=== PATIENT | female | born 1980 | race Caucasian/White ===

== ENCOUNTER 2017-10-15 20:03 | Emergency (ER) | payer OTHER ==
[2017-10-15 20:11] VITALS: BP 134/70
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
== END 2017-10-15 21:15 | disposition home or self-care (01) ==
LOC: ED 20:03
DX: S39.012A Strain of muscle, fascia and tendon of lower back, initial encounter (principal); V89.2XXA Person injured in unspecified motor-vehicle accident, traffic, initial encounter; R03.0 Elevated blood-pressure reading, without diagnosis of hypertension
CPT/HCPCS: 99283

== ENCOUNTER 2018-11-18 10:46 | Emergency (ER) | payer OTHER ==
--- NOTE | 2018-11-18 11:36 | CT Report ---
Reason: fall, LOC, no blood thinners Procedure Date: 11/18/2018 Accession Number: [id number] / [id number] Procedure: CT - HEAD WO CPT Code: FULL RESULT: EXAM: CT HEAD AND MAXILLOFACIAL EXAM DATE: 11/18/2018 11:13 AM. CLINICAL HISTORY: Fall, loss of consciousness, no blood thinners. COMPARISON: FACIAL BONES W/O 11/18/2018 11:08 AM. TECHNIQUE: Noncontrast axial sections through the head and face, with multiplanar reconstructions through the face. In accordance with CT protocol optimization, one or more of the following dose reduction techniques were utilized for this exam: automated exposure control, adjustment of mA and/or KV based on patient size, or use of iterative reconstructive technique. FINDINGS HEAD CT: Parenchyma: No intraparenchymal hemorrhage. No evidence of mass, midline shift. Wallace-white differentiation is distinct. Extraaxial Spaces: Normal for age. No subdural or epidural collections identified. Ventricles: Normal in size and position. Bones: No evidence of fracture or calvarial defect. Other: Mastoid air cells are clear. Mild amount of soft tissue thickening in the left extracranial frontotemporal region. FINDINGS MAXILLOFACIAL CT: Bones: No fracture or bone lesion. Temporomandibular Joints: The temporomandibular joints are symmetric and normally located. Sinuses: Large mucoid retention cyst in the right maxillary sinus with mucosal thickening/small retention cyst in the left maxillary sinus. Mild mucoperiosteal thickening in the nasal cavity. Other: Visualized orbits are atraumatic. IMPRESSION: Head CT: Negative for an acute intracranial abnormality. Maxillofacial CT: Negative. RADIA The call report notification system was initiated by Dr. Damaso Patten at 11:34 AM on 11/18/2018. ADDENDUM: 11/18/18 11:44 am Findings were discussed with including the chronic-appearing sinus changes, time approximately 11:40 AM on the day of dictation. The above call report findings were discussed with ED Physician by Dr. Damaso Patten at 11:45 AM on 11/18/2018.
--- NOTE | 2018-11-18 11:36 | CT Report ---
Reason: fell and LOC with hematoma to left quaker Procedure Date: 11/18/2018 Accession Number: [id number] / [id number] Procedure: CT - MAXILLOFACIAL WO CPT Code: FULL RESULT: EXAM: CT HEAD AND MAXILLOFACIAL EXAM DATE: 11/18/2018 11:13 AM. CLINICAL HISTORY: Fall, loss of consciousness, no blood thinners. COMPARISON: FACIAL BONES W/O 11/18/2018 11:08 AM. TECHNIQUE: Noncontrast axial sections through the head and face, with multiplanar reconstructions through the face. In accordance with CT protocol optimization, one or more of the following dose reduction techniques were utilized for this exam: automated exposure control, adjustment of mA and/or KV based on patient size, or use of iterative reconstructive technique. FINDINGS HEAD CT: Parenchyma: No intraparenchymal hemorrhage. No evidence of mass, midline shift. Wallace-white differentiation is distinct. Extraaxial Spaces: Normal for age. No subdural or epidural collections identified. Ventricles: Normal in size and position. Bones: No evidence of fracture or calvarial defect. Other: Mastoid air cells are clear. Mild amount of soft tissue thickening in the left extracranial frontotemporal region. FINDINGS MAXILLOFACIAL CT: Bones: No fracture or bone lesion. Temporomandibular Joints: The temporomandibular joints are symmetric and normally located. Sinuses: Large mucoid retention cyst in the right maxillary sinus with mucosal thickening/small retention cyst in the left maxillary sinus. Mild mucoperiosteal thickening in the nasal cavity. Other: Visualized orbits are atraumatic. IMPRESSION: Head CT: Negative for an acute intracranial abnormality. Maxillofacial CT: Negative. RADIA The call report notification system was initiated by Dr. Damaso Patten at 11:34 AM on 11/18/2018. ADDENDUM: 11/18/18 11:44 am Findings were discussed with including the chronic-appearing sinus changes, time approximately 11:40 AM on the day of dictation. The above call report findings were discussed with ED Physician by Dr. Damaso Patten at 11:45 AM on 11/18/2018.
[2018-11-18 12:27] VITALS: BP 127/72
[2018-11-18] MEDS ORDERED: HYDROcod/ACETAM 5/325 MG TABLET PO STA (12:32)
--- NOTE | 2018-11-18 12:36 | ED Physician Documentation ---
PD HPI HEAD INJURY - Stated complaint Stated Complaint: LT SIDE FACE INJURY - Chief complaint Chief Complaint: Trauma Hd/Nk - History obtained from History obtained from: Patient, Family - History of Present Illness Mechanism of head injury: Fell Where head injury occurred: Home Timing - onset: How many hours ago (1) Pain level max: 8 Pain level now: 8 Location of injury: Left Quality of pain: Pain, Aching, Dull Associated symptoms: LOC (brief). No: AMS, Amnesia, Nausea / vomiting, Neck pain, Paresthesias, Seizures, Ear drainage, Nasal drainage Symptoms improve with: Rest Symptoms worsen with: Palpation, Movement Recently seen: Not recently seen - Additional information Additional information: Patient tripped and fell today over her dogs, striking the left side of her head and face on a door. She states that she saw stars and then passed out. Review of Systems Ten Systems: 10 systems reviewed and negative Constitutional: denies: Fever, Chills Eyes: denies: Decreased vision Ears: denies: Ear pain Nose: denies: Rhinorrhea / runny nose, Congestion Throat: denies: Sore throat Cardiac: denies: Chest pain / pressure Respiratory: denies: Cough GI: denies: Abdominal Pain, Nausea, Vomiting, Diarrhea Skin: denies: Rash Musculoskeletal: denies: Neck pain, Back pain Neurologic: denies: Focal weakness, Numbness PD PAST MEDICAL HISTORY - Past Medical History Past Medical History: Yes Cardiovascular: None Endocrine/Autoimmune: None Other Past Medical History: mast cell disorder - Past Surgical History Past Surgical History: Yes General: Cholecystectomy - Present Medications Home Medications: Ambulatory Orders Medication Instructions Recorded Confirmed Acyclovir 400 mg PO 5XD #25 tablet 01/12/16 Hydrocodone/Acetaminophen [[place] 1 each PO Q6H PRN #15 tablet 01/12/16 5-325 Tablet] Sulfamethoxazole/Trimethoprim 1 each PO BID #14 tablet 01/12/16 [Bactrim Ds Tablet] Hydrocodone/Acetaminophen 1 - 2 each PO Q6H PRN #10 tablet 11/18/18 [Hydrocodon-Acetaminophen 5-325] Promethazine [Phenergan] 25 mg PO Q6H PRN #10 tab 11/18/18 - Allergies Allergies/Adverse Reactions: Allergies Allergy/AdvReac Type Severity Reaction Status Date / Time caffeine Allergy Unknown Verified 11/18/18 10:52 meperidine HCl * Allergy Unknown Verified 11/18/18 10:52 [From Demerol] Penicillins Allergy Hives Verified 11/18/18 10:52 metronidazole [From Flagyl] AdvReac Unknown Verified 11/18/18 10:52 ondansetron HCl * AdvReac Unknown Verified 11/18/18 10:52 [From Zofran (as hydrochloride)] - Social History Does the pt smoke?: No Smoking Status: Never smoker Does the pt drink ETOH?: Yes Does the pt have substance abuse?: No - Immunizations Immunizations are current?: Yes - POLST Patient has POLST: No PD ED PE NORMAL - Vitals Vital signs reviewed: Yes - General General: Alert and oriented X 3, No acute distress, Well developed/nourished - HEENT HEENT: PERRL, EOMI, Ears normal, Moist mucous membranes, Pharynx benign, Other (Tender to palpation over the right side of the mandible. There is a clicking to the jaw. She also has a left-sided temporal hematoma. 3 x 4 cm) - Neck Neck: Supple, no meningeal sign, No bony TTP - Respiratory Respiratory: No respiratory distress - Back Back: No spinal TTP - Derm Derm: Warm and dry - Extremities Extremities: No deformity - Neuro Neuro: Alert and oriented X 3 - Psych Psych: Normal mood, Normal affect Results - Vitals Vitals: Vital Signs - 24 hr 11/18/18 11/18/18 10:49 12:26 Temperature 36.6 C Heart Rate 71 74 Respiratory 14 14 Rate Blood Pressure 129/84 H 127/72 O2 Saturation 100 97 Oxygen O2 Source Room air - Rads (name of study) head CT Radiology: Prelim report reviewed, EMP read contemporaneously, See rad report (No acute abnormality) maxillofacial CT Radiology: Prelim report reviewed, EMP read contemporaneously, See rad report (No acute abnormality) PD MEDICAL DECISION MAKING - ED course Complexity details: reviewed results, re-evaluated patient, considered differential, d/w patient, d/w family ED course: 38-year-old female with a closed head injury. Will prescribe pain medication for home and follow-up with her doctor. Head injury instructions given at bedside. Patient counseled regarding signs and symptoms for which I believe and urgent re-evaluation would be necessary. Patient with good understanding of and agreement to plan and is comfortable going home at this time This document was made in part using voice recognition software. While efforts are made to proofread this document, sound alike and grammatical errors may occur. Departure - Departure Disposition: 01 Home, Self Care Clinical Impression: Head injury Qualifiers: Encounter type: initial encounter Qualified Code(s): S09.90XA - Unspecified injury of head, initial encounter Concussion Qualifiers: Encounter type: initial encounter Loss of consciousness presence/duration: with LOC of 30 min or less Qualified Code(s): S06.0X1A - Concussion with loss of consciousness of 30 minutes or less, initial encounter Facial hematoma Qualifiers: Encounter type: initial encounter Qualified Code(s): S00.83XA - Contusion of other part of head, initial encounter Condition: Good Health Concerns: head injury Plan of Treatment: supportive care Care Goals: resolve head injury Assessment: head injury Instructions: ED Head Injury Closed Follow-Up: your,doctor in 1 week [Other] Prescriptions: Hydrocodone/Acetaminophen [Hydrocodon-Acetaminophen 5-325] 1 - 2 each PO Q6H PRN #10 tablet PRN Reason: pain Promethazine [Phenergan] 25 mg PO Q6H PRN #10 tab PRN Reason: Nausea / Vomiting Comments: Return if you worsen. Your CT scans are normal today. Do not drink alcohol or drive while on narcotic pain medicine or phenergan. Note that many narcotic pain relievers also contain tylenol/acetaminophen. Please ensure that your total dose of acetaminophen from all sources does not exceed 3 grams (3000mg) per day. You may constipated on this medication, take a stool softener such as "Colace" twice a day while you are on it. Also recommend a fmyo-uoc-kcifosa laxative such as senna or MiraLAX any day that you do not have a bowel movement. If you received narcotic pain medication in the emergency department, do not drive or operate machinery for the next 24 hours.
== END 2018-11-18 12:45 | disposition home or self-care (01) ==
LOC: ED 10:46
DX: S06.0X1A Concussion with loss of consciousness of 30 minutes or less, initial encounter (principal); W01.198A Fall on same level from slipping, tripping and stumbling with subsequent striking against other object, initial encounter; Y92.009 Unspecified place in unspecified non-institutional (private) residence as the place of occurrence of the external cause
CPT/HCPCS: 70450; 70486; 99283; 99284; A9270

== ENCOUNTER 2019-02-02 22:53 | Outpatient (CLI) | payer OTHER | END 2019-02-02 22:54 | disposition short-term general hospital (02) | LOC: EMS 22:53 | PROVIDERS: ATTEND Surgery | DX: R29.810 Facial weakness (principal); R47.81 Slurred speech; R53.1 Weakness | CPT/HCPCS: A0425; A0427 ==

== ENCOUNTER 2020-11-08 09:11 | Outpatient (CLI) | payer OTHER | END 2020-11-08 09:12 | disposition critical access hospital (66) | LOC: EMS 09:11 | DX: S99.911A Unspecified injury of right ankle, initial encounter (principal); W01.0XXA Fall on same level from slipping, tripping and stumbling without subsequent striking against object, initial encounter; Y92.007 Garden or yard of unspecified non-institutional (private) residence as the place of occurrence of the external cause | CPT/HCPCS: A0425; A0427 ==

== ENCOUNTER 2020-11-08 09:42 | Emergency (ER) | payer OTHER ==
[2020-11-08] MEDS ORDERED: diphenhydrAMINE INJ 50 MG/ML VIAL IVP STA (09:52)
[2020-11-08] MEDS ORDERED: fentaNYL 100 MCG/2 ML VIAL IVP STA ×2 (09:52→10:22)
--- NOTE | 2020-11-08 09:52 | ED Physician Documentation ---
PD HPI LOWER EXT INJURY - Stated complaint Stated Complaint: RT ANKLE INJ - History obtained from History obtained from: Patient - History of Present Illness PD HPI LOW EXT INJURY LOCATION: Right, Ankle Type of injury: Fall (slipped on wet grass with twist and fall. Pain abrupt right ankle and it felt "dangling" when tried to move it after the injury. Denies other injuries.), Twist Timing - onset: Today (shortly [employer].) Timing - details: Abrupt onset, Still present Worsened by: Moving Associated symptoms: Swelling. No: Weakness, Numbness Similar symptoms before: Has not had sx before Recently seen: Not recently seen Review of Systems Constitutional: denies: Fever, Chills Nose: denies: Rhinorrhea / runny nose, Congestion Throat: denies: Sore throat Cardiac: denies: Chest pain / pressure Respiratory: denies: Cough GI: denies: Abdominal Pain Skin: denies: Abrasion (s), Laceration (s) Musculoskeletal: reports: Joint pain (just the right ankle today) Neurologic: denies: Focal weakness, Numbness, Altered mental status, Head injury PD PAST MEDICAL HISTORY - Past Medical History Cardiovascular: None Endocrine/Autoimmune: None - Past Surgical History Past Surgical History: Yes General: Cholecystectomy - Present Medications Home Medications: Ambulatory Orders Medication Instructions Recorded Confirmed HYDROcod/ACETAM 5/325 [[place] 5/325] 1 ea PO Q6H PRN #10 tablet 11/08/20 oxyCODONE [Roxicodone] 5 mg PO QPM PRN #10 tablet 11/08/20 - Allergies Allergies/Adverse Reactions: Allergies Allergy/AdvReac Type Severity Reaction Status Date / Time caffeine Allergy Unknown Verified 11/08/20 09:54 meperidine HCl * Allergy Unknown Verified 11/08/20 09:54 [From Demerol] Penicillins Allergy Hives Verified 11/08/20 09:54 metronidazole [From Flagyl] AdvReac Unknown Verified 11/08/20 09:54 ondansetron HCl * AdvReac Unknown Verified 11/08/20 09:54 [From Zofran (as hydrochloride)] - Social History Does the pt smoke?: No Smoking Status: Never smoker Does the pt drink ETOH?: Yes Does the pt have substance abuse?: No - Immunizations Immunizations are current?: Yes - POLST Patient has POLST: No PD ED PE NORMAL - Vitals Vital signs reviewed: Yes - General General: Alert and oriented X 3, Well developed/nourished, Other (appears in pain due to ankle injury.) - HEENT HEENT: Atraumatic - Neck Neck: Supple, no meningeal sign, No bony TTP - Cardiac Cardiac: RRR, No murmur - Respiratory Respiratory: Clear bilaterally, Other (no chestwall tenderness.) - Abdomen Abdomen: Soft, Non tender - Back Back: No spinal TTP - Derm Derm: Normal color, Warm and dry - Extremities Extremities: Other (right ankle with tenderness medial and lateral. Some effusion. Normal sesnation, color, cap refill in toes. Able to wiggle toes okay. Some tender mid to proximal fibula as well. ) - Neuro Neuro: Alert and oriented X 3, No motor deficit, No sensory deficit, Normal speech Results - Vitals Vitals: Vital Signs - 24 hr 11/08/20 11/08/20 11/08/20 09:43 11:52 12:53 Temperature 36.4 C L 37.1 C 36.7 C Heart Rate 77 72 67 Respiratory 16 16 16 Rate Blood Pressure 129/99 H 122/62 117/71 O2 Saturation 99 95 97 Oxygen O2 Source Room air - Rads (name of study) right ankle Radiology: Prelim report reviewed (distal fibula fracture at angle of mortis with lateral displacement. Medial space widened without fracture. ), See rad report right lower leg Radiology: Prelim report reviewed (no other fracture higher.), See rad report Procedures - Splint (location) right ankle fracture Splint applied by: Tech Type of splint: Fiberglass, Posterior, Stirrup Other: Patient tolerated well, Neurovascular intact, Good alignment (first splinting was not holding ankle well; patient felt there was some movement of fx with slight movement. Had Tech remove and resplint. Repeat more comfortable per patient.), Crutches provided PD MEDICAL DECISION MAKING - ED course Complexity details: reviewed results, re-evaluated patient (given pain meds IV with repeat dosing as needed and prior to splinting. ), considered differential, d/w patient Departure - Departure Disposition: 01 Home, Self Care Clinical Impression: Fibula fracture Qualifiers: Encounter type: initial encounter Fibula location: distal Fracture type: closed Fracture morphology: unspecified fracture morphology Laterality: right Qualified Code(s): S82.831A - Other fracture of upper and lower end of right fibula, initial encounter for closed fracture Tear of deltoid ligament of right ankle Qualifiers: Encounter type: initial encounter Qualified Code(s): S93.421A - Sprain of deltoid ligament of right ankle, initial encounter Condition: Stable Record reviewed to determine appropriate education?: Yes Instructions: ED Fx Ankle General Follow-Up: Nelson Sheldon MD [Provider Admit Priv/Credential] - Prescriptions: HYDROcod/ACETAM 5/325 [[place] 5/325] 1 ea PO Q6H PRN #10 tablet PRN Reason: Pain oxyCODONE [Roxicodone] 5 mg PO QPM PRN #10 tablet PRN Reason: Pain Comments: Keep the splint in place. Crutches for nonweightbearing. Call orthopedics for follow-up appointment for next week, call today or tomorrow for an appointment. Elevate rest and ice your ankle often to reduce swelling. This may need surgery for ultimate repair but will be determined by orthopedics on follow-up. Anti-inflammatories such as ibuprofen or naproxen 2-3 times daily with food. To that add Tylenol or stronger pain medicine if needed. I am prescribing a short course of narcotic pain medication for you. These are potentially dangerous and addictive medications that should be used carefully. These medications may constipate you. Take an klsz-jso-raziosg stool softener such as docusate twice daily with plenty of water while taking these medications. If you go 24 hours without a bowel movement, take dolj-hgb-fkzimqh MiraLAX, per package instructions. Do not drink or drive while taking these medications. If you received narcotic or sedating medications while in the emergency department do not drive for 24 hours. Store this medication in a safe, secure place and out of reach of children. It is a violation of federal law to give or sell this medication to another person or to use in a manner other than prescribed. The ED will not refill narcotic prescriptions, including prescriptions lost or stolen. You can dispose of unwanted medications at the [facility]'s office or at several pharmacies such as [id number]. Discharge Date/Time: 11/08/20 13:03
[2020-11-08] MEDS ORDERED: KETOROLAC 30 MG/ML VIAL IVP STA (10:22)
--- OUTSIDE RECORDS SUMMARY | 2020-11-08 10:25 | EXTERNAL MEDICAL SUMMARY RPT | Continuity of Care Document ---
:1980 Demographics Phone Unavailable Preferred Language Unknown Marital Status Unknown Pentecostal Affiliation Unknown Race Unknown Ethnic Group Unknown Author Organization [facility] Address [address] [phone] Phone Allergies Encounters Medications Problems Results
[2020-11-08] MEDS ORDERED: HYDROmorphone 1 MG/ML CARPUJECT IVP STA ×2 (10:42→11:22)
--- NOTE | 2020-11-08 10:43 | XRAY Report ---
PROCEDURE: Ankle 3 View RT INDICATIONS: ankle and lower leg injury TECHNIQUE: 3 views of the ankle were acquired. COMPARISON: None FINDINGS: Bones: 3 views of the right foot demonstrate an oblique fracture of the distal fibula with displaceme nt. There is widening of the medial mortise.. Ankle mortise is normally aligned. No suspicious bony lesions. Soft tissues: No tibiotalar joint effusion. Achilles tendon appears normal. IMPRESSION: Oblique fracture of the distal fibula with medial displacement of the tibia and widening of the medial mortise. Reviewed by: Eric Maya on 11/08/2020 10:41 AM PDT Approved by: Eric Maya on 11/08/2020 10:41 AM PDT Station ID: [id number]
--- NOTE | 2020-11-08 10:44 | XRAY Report ---
PROCEDURE: Tib/Fib RT INDICATIONS: ankle and lower leg injury TECHNIQUE: 2 views of the tibia and fibula were acquired. COMPARISON: None FINDINGS: Bones: There is an oblique fracture of the distal fibula with medial displacement of the tibia and wi dening of the medial mortise. Soft tissues: No suspicious soft tissue calcifications or masses. IMPRESSION: Oblique fracture of the distal fibula with medial displacement of the tibia and widening of the medial ankle mortise. Reviewed by: Eric Maya on 11/08/2020 10:42 AM PDT Approved by: Eric Maya on 11/08/2020 10:42 AM PDT Station ID: [id number]
[2020-11-08 12:54] VITALS: BP 117/71
== END 2020-11-08 13:03 | disposition home or self-care (01) ==
LOC: EDUNIT# → ED 09:42
DX: S82.831A Other fracture of upper and lower end of right fibula, initial encounter for closed fracture (principal); S93.421A Sprain of deltoid ligament of right ankle, initial encounter; W01.0XXA Fall on same level from slipping, tripping and stumbling without subsequent striking against object, initial encounter
CPT/HCPCS: 29505; 73590; 73610; 96374; 96375; 96376; 99284; 99285; J1170; J1200

== ENCOUNTER 2020-11-09 22:59 | Emergency (ER) | payer OTHER ==
--- OUTSIDE RECORDS SUMMARY | 2020-11-09 23:04 | EXTERNAL MEDICAL SUMMARY RPT | Continuity of Care Document ---
:1980 Demographics Phone Unavailable Preferred Language Unknown Marital Status Unknown Orthodoxy Affiliation Unknown Race Unknown Ethnic Group Unknown Author Organization [facility] Address [address] [phone] Phone Allergies Encounters Medications Problems Results
--- OUTSIDE RECORDS SUMMARY | 2020-11-09 23:08 | EXTERNAL MEDICAL SUMMARY RPT | Continuity of Care Document ---
:1980 Demographics Phone Unavailable Preferred Language Unknown Marital Status Unknown Cheondoism Affiliation Unknown Race Unknown Ethnic Group Unknown Author Organization [place] Address [address] [phone] Phone Allergies Encounters Medications Problems Results
--- NOTE | 2020-11-09 23:17 | ED Physician Documentation ---
PD HPI LOWER EXT INJURY - Stated complaint Stated Complaint: R ANKLE PX - Chief complaint Chief Complaint: Ext Problem - History obtained from History obtained from: Patient - History of Present Illness PD HPI LOW EXT INJURY LOCATION: Right, Ankle Type of injury: Twist (recent ankle fracture with splinted and Rx pain meds. She presents saying her ankle is worst pain this evening and has feeling numbness in toes. Splint feels that it is rubbing on sides of ankles. Ankle feels as though marked pressure in it.) Recently seen: Emergency Dept Review of Systems Constitutional: denies: Fever, Chills Nose: denies: Rhinorrhea / runny nose, Congestion Throat: denies: Sore throat Respiratory: denies: Cough Skin: denies: Abrasion (s), Laceration (s) Neurologic: reports: Numbness (mildly in toes this evening). denies: Focal weakness PD PAST MEDICAL HISTORY - Past Medical History Past Medical History: Yes Cardiovascular: None Endocrine/Autoimmune: None - Past Surgical History Past Surgical History: Yes General: Cholecystectomy - Present Medications Home Medications: Ambulatory Orders Medication Instructions Recorded Confirmed HYDROcod/ACETAM 5/325 [[place] 5/325] 1 ea PO Q6H PRN #10 tablet 11/08/20 11/09/20 oxyCODONE [Roxicodone] 5 mg PO QPM PRN #10 tablet 11/08/20 11/09/20 - Allergies Allergies/Adverse Reactions: Allergies Allergy/AdvReac Type Severity Reaction Status Date / Time caffeine Allergy Unknown Verified 11/08/20 09:54 meperidine HCl * Allergy Unknown Verified 11/08/20 09:54 [From Demerol] Penicillins Allergy Hives Verified 11/08/20 09:54 metronidazole [From Flagyl] AdvReac Unknown Verified 11/08/20 09:54 ondansetron HCl * AdvReac Unknown Verified 11/08/20 09:54 [From Zofran (as hydrochloride)] - Social History Does the pt smoke?: No Smoking Status: Never smoker Does the pt drink ETOH?: Yes Does the pt have substance abuse?: No - Immunizations Immunizations are current?: Yes - POLST Patient has POLST: No PD ED PE NORMAL - Vitals Vital signs reviewed: Yes - General General: Alert and oriented X 3, Well developed/nourished, Other (appears in pain, with leg elevated and splint in place. ) - Derm Derm: Normal color, Warm and dry - Neuro Neuro: Alert and oriented X 3, No motor deficit, No sensory deficit (she can feel touch and position sense of toes distally. Ankle with swelling and effusion in joint. Not feeling tense per se. Very tender diffusely at ankle. Good color and cap refill in all toes. ), Normal speech Results - Vitals Vitals: Vital Signs - 24 hr 11/09/20 11/09/20 11/10/20 23:04 23:15 01:23 Temperature 36.7 C 36.7 C 36.7 C Heart Rate 79 79 71 Respiratory 18 18 17 Rate Blood Pressure 137/70 H 137/70 H 115/70 O2 Saturation 95 95 99 Oxygen O2 Source Room air Procedures - Splint (location) right ankle Splint applied by: Physician Type of splint: Fiberglass, Posterior, Stirrup Other: Patient tolerated well, No complications, Neurovascular intact, Other (she says feels comfortable) PD MEDICAL DECISION MAKING - ED course Complexity details: re-evaluated patient (calf not tender. I loosened and removed stirrup splint and the felt wrap. She states she was getting feeling better in toes, and less pain in ankle. No skin breakdown. ), considered differential (consider compartment syndrome with fracture, versus tightness from splint. ), d/w patient ED course: Pain inproved with meds and also with loosening/removing current splint. Replaced splint with new one. She states it feels comfortable. I do not feel that I need to measure pressures in ankle joint. Consider tapping the ankle to decreased effusion, but is day or more old, so less likely to get blood out (more likely hematoma and would be hard to remove, but not sure). I offered this to patient to try tapping ankle and she declined. Departure - Departure Disposition: 01 Home, Self Care Clinical Impression: Ankle fracture Qualifiers: Encounter type: subsequent encounter Fracture type: closed Laterality: right Acute ankle pain Qualifiers: Laterality: right Qualified Code(s): M25.571 - Pain in right ankle and joints of right foot Condition: Stable Record reviewed to determine appropriate education?: Yes Follow-Up: Nelson Sheldon MD [Provider Admit Priv/Credential] - Comments: Continue to ice elevate and rest the ankle often with the splint in place. Nonweightbearing as previous. Continue anti-inflammatories and pain medicines as needed. Follow-up with orthopedics this coming week, call Thursday for an appointment. Return to the ER if severe pain again. Discharge Date/Time: 11/10/20 01:23
[2020-11-09] MEDS ORDERED: DROPERIDOL 5 MG/2 ML VIAL IVP STA (23:34)
[2020-11-09] MEDS ORDERED: KETOROLAC 30 MG/ML VIAL IVP STA (23:34)
[2020-11-09] MEDS ORDERED: HYDROmorphone 1 MG/ML CARPUJECT IVP STA (23:34)
[2020-11-10 01:25] VITALS: BP 115/70
== END 2020-11-10 01:23 | disposition home or self-care (01) ==
LOC: ED 22:59
DX: S82.891A Other fracture of right lower leg, initial encounter for closed fracture (principal); X58.XXXA Exposure to other specified factors, initial encounter
CPT/HCPCS: 29515; 96374; 96375; 99283; J1170

== ENCOUNTER 2020-11-14 08:14 | Day surgery (SDC) | payer OTHER ==
[2020-11-14] MEDS ORDERED: ACETAMINOPHEN 1,000 MG/100 ML 100 ML IV ONE (08:21)
[2020-11-14] MEDS ORDERED: ceFAZolin 2 GM/50 ML 2 GM/50 ML BAG IV ONE (08:21)
[2020-11-14] MEDS ORDERED: LACTATED RINGERS 1,000 ML IV ONE ×3 (09:25→14:58)
[2020-11-14 09:32] LABS: B. PARAPERTUSSIS- RESP PCR PAN NOT DETECTED; B. PERTUSSIS- RESP PCR PANEL NOT DETECTED; C. PNEUMONIAE- RESP PCR PANEL NOT DETECTED; CORONAVIRUS 229E-RESP PCR NOT DETECTED; CORONAVIRUS HKU1-RESP PCR NOT DETECTED; CORONAVIRUS NL63-RESP PCR NOT DETECTED; CORONAVIRUS OC43-RESP PCR NOT DETECTED; HUMAN METAPNEUMOVIRUS NOT DETECTED; INFLUENZA A- RESP PCR PANEL NOT DETECTED; INFLUENZA B - RESP PCR PANEL NOT DETECTED; M. PNEUMONIAE- RESP PCR PANEL NOT DETECTED; PARAINFLUENZA VIRUS 1 NOT DETECTED; PARAINFLUENZA VIRUS 2 NOT DETECTED; PARAINFLUENZA VIRUS 3 NOT DETECTED; PARAINFLUENZA VIRUS 4 NOT DETECTED; RHINOVIRUS/ENTEROVIRUS NOT DETECTED; RSV- RESP PCR PANEL NOT DETECTED; SARS-CoV-2 -RESP PCR PANEL NOT DETECTED
[2020-11-14 10:19] LABS: HCG UR QUAL NEGATIVE
--- NOTE | 2020-11-14 10:50 | ANESTHESIA ---
Pre-Anesthesia VS, & Labs - Diagnosis R ankle fracture - Procedure ORIF R ankle Vital Signs: Temp Pulse Resp BP Pulse Ox 36.8 C 81 18 128/74 98 11/14/20 08:48 11/14/20 08:48 11/14/20 08:48 11/14/20 08:48 11/14/20 08:48 Height: 5 ft 1 in Weight (kg): 84 kg Body Mass Index: 34.9 BMI Classification: Obese - NPO >8 hours - Is Patient ?: No - Lab Results Current Lab Results: Laboratory Tests 11/14/20 09:21: POC Whole Bld Glucose 108 H Home Medications and Allergies Allergies/Adverse Reactions: Allergies Allergy/AdvReac Type Severity Reaction Status Date / Time caffeine Allergy Unknown Verified 11/08/20 09:54 Penicillins Allergy Hives Verified 11/08/20 09:54 chocolate flavor AdvReac Anaphylaxis Verified 11/14/20 09:02 metronidazole [From Flagyl] AdvReac Unknown Verified 11/08/20 09:54 promethazine [From Phenergan] AdvReac Unknown Verified 11/14/20 09:03 Anes History & Medical History - Anesthetic History Anesthesia Complications: reports: No previous complications Family history of Anesthesia Complications: Denies Family history of Malignant Hyperthermia: Denies - Medical History Cardiovascular: reports: Arrhythmia Pulmonary: reports: None Gastrointestinal: reports: Hiatal hernia, Cholelithiasis Urinary: reports: None 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) Musculoskeletal: reports: None 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, Other (Mast cell disorder) Skin: reports: None Smoking Status: Never smoker - Surgical History General: reports: Cholecystectomy Exam General: Alert, Oriented x3, Cooperative Dental: WNL Mouth Openin Fingerbreadth Neck Mobility: Normal Mallampati classification: III Thyromental Distance: 4-6 cm Respiratory: Lungs clear Cardiovascular: Regular rate Abdomen: Normal bowel sounds Extremities: No clubbing Neurological: Normal gait Mental/Cognitive Status: Alert/Oriented X3 Cognitive Status: Within normal limits Plan Anesthesia Type: General, Popliteal Block, Adductor Block Consent for Procedure(s) Verified and Reviewed: Yes Code Status: Attempt Resuscitation ASA classification: 3-Severe systemic disease Is this case an emergency?: No
[2020-11-14] MEDS ORDERED: ONDANSETRON 4 MG/2 ML VIAL IVP PRN (10:51)
[2020-11-14] MEDS ORDERED: METOCLOPRAMIDE 10 MG/2 ML VIAL IVP PRN (10:51)
[2020-11-14] MEDS ORDERED: ePHEDrine 50 MG/ML VIAL IVP PRN (10:51)
[2020-11-14] MEDS ORDERED: NALOXONE 0.4 MG/ML VIAL IVP PRN (10:51)
[2020-11-14] MEDS ORDERED: fentaNYL 100 MCG/2 ML VIAL IVP PRN (10:51)
[2020-11-14] MEDS ORDERED: ATROPINE ABBOJECT 1 MG/10 ML SYRINGE IVP PRN (10:51)
[2020-11-14] MEDS ORDERED: MORPHINE 2 MG/ML CARPUJECT IVP PRN (10:51)
[2020-11-14] MEDS ORDERED: HYDROmorphone 0.5 MG/0.5 ML SYRINGE IVP PRN (10:51)
[2020-11-14] MEDS ORDERED: LACTATED RINGERS 1,000 ML IV SCH (11:00)
[2020-11-14] MEDS ORDERED: MIDAZOLAM 2 MG/2 ML VIAL ONE (11:41)
[2020-11-14] MEDS ORDERED: LIDOCAINE-MPF 2% 5 ML VIAL ONE (11:42)
[2020-11-14] MEDS ORDERED: PROPOFOL 200 MG/20 ML VIAL IVP ONE (11:42)
[2020-11-14] MEDS ORDERED: fentaNYL 100 MCG/2 ML VIAL ONE ×2 (11:42→13:35)
[2020-11-14] MEDS ORDERED: ROPIVACAINE 0.5% PF 20 ML AMPULE ONE (11:42)
[2020-11-14] MEDS ORDERED: DEXAMETHASONE 4 MG/ML VIAL ONE (11:46)
[2020-11-14] MEDS ORDERED: oxyCODONE 5 MG TABLET PO PRN (11:50)
[2020-11-14] MEDS ORDERED: KETOROLAC 15 MG/ML VIAL IVP STA (11:50)
--- NOTE | 2020-11-14 13:54 | OPERATIVE REPORT ---
Operative Report - General Procedure Date: 11/14/20 Planned Procedure: Open reduction internal fixation right ankle; repair of deltoid ligament right ankle Pre-Op Diagnosis: Bimalleolar equivalent fracture right ankle fracture subluxation, ruptured Procedure Performed: Open reduction internal fixation with lateral fibular hook plate, repair of deltoid ligament right ankle Post Op Diagnosis: same as preoperative diagnosis - Procedure Note Primary Surgeon: Nelson Sheldon MD Secondary Surgeon: William MCKEON, Michael MCKEON Anesthesia Provider: Saloni Bar CRNA Anesthesia Technique: General LMA, Regional block Estimated Blood Loss (mL): 30 Indications: This is a relatively healthy and active woman with increased body mass index, fell and sustained isolated injury to right ankle. She sustained a closed, displaced bimalleolar equivalent fracture subluxation of the right ankle with localized findings on exam and x-rays that confirmed the diagnosis. She had a fracture just above the ankle mortise to the lateral malleolus and a widened cl ear space with subluxation of the talus laterally indicative of ruptured deltoid ligament. Her swelling was not excessive, no fracture blisters. Neurovascular was intact. Findings: She had a relatively transverse fracture of the lateral malleolus above the ankle joint, minimal comminution. The deltoid ligament was ruptured on the medial side of the ankle. Complications: None - Other Other Information/Narrative: The patient was brought to the operating room, given a popliteal and adductor block as well as general anesthesia. She was placed in the supine position with a gel bag beneath the right buttock. A bone foam was placed beneath the right lower extremity. The right lower extremity was prepped and draped in a sterile manner in the usual fashion. Because of her large thigh circumference, a calf tourniquet was applied using a sterile calf tourniquet. A timeout procedure was performed by the entire operating room team and all were in agreement. The right leg was exsanguinated and the calf tourniquet was elevated to 200 mmHg. A lateral incision was made, longitudinal, beginning at the tip of the lateral malleolus and extending it proximally for several centimeters. The fibula was identified and the fracture was opened. The curette and saline lavage were used to irrigate the fracture hematoma. The fracture was reduced and held with a upjjh-ob-yinzz bone clamp. An intramedullary guide pin was inserted. The Arthrex hook lateral locking plate was applied, 7 hole. The prongs of the plate were impacted with a mallet using a plate impactor. An olive pin was used to hold the plate to bone. The ovals screw in the plate was filled with a cortical screw, stabilizing the plate and compressing it to bone. An intramedullary screw was inserted, 50 mm in length from the tip of the lateral malleolus. This was a cannulated screw that had a guidepin inserted first, drilled the proximal cortex and then inserted a 50 mm partially-threaded cancellous screw. The intramedullary screw and plate gave good fixation. Additional cortical screws were inserted proximally and 2 distal locking screws in the distal fracture fragment. This gave excellent stability and alignment which was confirmed with C arm image intensifier. There was instability on the medial side with rotational stress and valgus. Therefore, a second incision was made over the medial malleolus. This was a longitudinal incision. The deltoid rupture was easily identified. The rupture was in the distal half of the deltoid ligament. Arthrex fiber tack suture anchors were inserted. 2 suture anchors were inserted into the medial malleolus and excellent fixation. The 4 suture strands were then taken through the deltoid. These were tied with the ankle in some varus and this gave excellent stability to the ankle mortise and to external rotation stress. The superficial layers of the deltoid tear was closed with 0 Vicryl. The pederson bcutaneous tissue was closed with 2-0 Vicryl. The skin was closed with stainless steel kary. Final x-rays were obtained with the C-arm and showed good alignment of the ankle mortise and good position of the internal fixation. Xeroform, bacitracin, dry sterile gauze and a well-padded short leg fiberglass splint was applied to the right leg. Physician electrician assistant was utilized to help with exposure, fracture reduction, protection of vital structures, wound closure and splint application. She received 2 g of intravenously. She tolerated procedure well. The tourniquet time was 68 minutes
[2020-11-14] MEDS ORDERED: KETOROLAC 15 MG/ML VIAL ONE (14:51)
--- NOTE | 2020-11-14 15:07 | XRAY Report ---
PROCEDURE: OR C-Arm Procedure INDICATIONS: ankle fx TECHNIQUE: 2 intraoperative images of the right ankle. COMPARISON: Right ankle radiographs 11/08/2020. FINDINGS: 2 intraoperative images of the right fibula ORIF. Hardware projects in the expected location. There i s anatomic alignment. IMPRESSION: Intraoperative guidance provided. Right distal fibula ORIF. Reviewed by: Collins Chung MD on 11/14/2020 3:06 PM PDT Approved by: Collins Chung MD on 11/14/2020 3:06 PM PDT Station ID: [id number]
--- NOTE | 2020-11-14 15:39 | ANESTHESIA POST OP EVALUATION ---
Anesthesia Post Eval - Post Anesthesia Eval Vitals: Last Vital Signs Temp 37.1 C 11/14/20 15:09 Pulse 74 11/14/20 15:34 Resp 18 11/14/20 15:34 BP 92/58 L 11/14/20 15:34 Pulse Ox 94 11/14/20 15:34 CV Function Including HR & BP: Stable Pain Control: Satisfactory Nausea & Vomiting: Negative Mental Status: Baseline Respiratory Status: Airway Patent Hydration Status: Satisfactory Anesthesia Complications: None
[2020-11-14 16:22] VITALS: BP 120/79
== END 2020-11-14 08:15 | disposition home or self-care (01) ==
LOC: SDS 08:14
PROVIDERS: ATTEND Orthopaedic Surgery
PROC: 0MQQ0ZZ Repair Right Ankle Bursa and Ligament, Open Approach (ICD-10-PCS; 2020-11-14)
PROC: 0QSJ04Z Reposition Right Fibula with Internal Fixation Device, Open Approach (ICD-10-PCS; principal; 2020-11-14 10:30)
DX: S82.61XA Displaced fracture of lateral malleolus of right fibula, initial encounter for closed fracture (principal); S93.421A Sprain of deltoid ligament of right ankle, initial encounter; Z20.822 Contact with and (suspected) exposure to COVID-19; E66.9 Obesity, unspecified; Z68.34 Body mass index [BMI] 34.0-34.9, adult
CPT/HCPCS: 0202U; 27695; 27792; 81025; C1713; J0131; J0690; J7120

== ENCOUNTER 2020-12-27 15:31 | Outpatient (CLI) | payer OTHER ==
--- NOTE | 2020-12-27 17:12 | XRAY Report ---
PROCEDURE: Ankle 3 View RT INDICATIONS: DISPLACED BIMALLEOLAR FRACTURE OF RIGHT LOWER LEG TECHNIQUE: 3 views of the ankle were acquired. COMPARISON: Prior ankle series dated 11/08/2020 FINDINGS: Bones: Improved alignment status post ORIF of distal fibular fracture. Lateral fixation plate and scr ews have been placed in expected positions.. Ankle mortise is normally aligned. No suspicious bony lesions. Soft tissues: No tibiotalar joint effusion. Achilles tendon appears normal. IMPRESSION: Near-anatomic alignment status post ORIF of right ankle fracture. Reviewed by: GUTIERREZ Srinivasan on 12/27/2020 5:11 PM PDT Approved by: Anthony Carcamo MD on 12/27/2020 5:11 PM PDT Station ID: [id number]
--- NOTE | 2020-12-27 17:12 | XRAY Report ---
PROCEDURE: Tib/Fib RT INDICATIONS: DISPLACED BIMALLEOLAR FRACTURE OF RIGHT LOWER LEG TECHNIQUE: 2 views of the tibia and fibula were acquired. COMPARISON: Prior ankle series dated 11/09/2019 FINDINGS: Bones: Improved alignment status post ORIF of distal fibular fracture. Lateral fixation plate and scr ews in place in expected positions. Ankle mortise is symmetric. The lower leg otherwise appears gross ly normal.. No suspicious bony lesions. Soft tissues: No suspicious soft tissue calcifications or masses. IMPRESSION: Improved alignment status post ORIF of distal fibular fracture and otherwise normal appearance of the lower leg. Reviewed by: GUTIERREZ Srinivasan on 12/27/2020 5:11 PM PDT Approved by: Anthony Carcamo MD on 12/27/2020 5:11 PM PDT Station ID: [id number]
== END 2020-12-27 23:59 | disposition home or self-care (01) ==
LOC: DI.N 15:31
PROVIDERS: ATTEND Physician Assistant
DX: S82.891D Other fracture of right lower leg, subsequent encounter for closed fracture with routine healing (principal); S82.831D Other fracture of upper and lower end of right fibula, subsequent encounter for closed fracture with routine healing

== ENCOUNTER 2021-01-12 09:00 | Emergency (ER) | payer OTHER ==
--- NOTE | 2021-01-12 09:36 | ED Physician Documentation ---
PD HPI URI - Stated complaint Stated Complaint: C+ FEVER - History obtained from History obtained from: Patient - History of Present Illness Timing - onset: How many days ago (7) Timing duration: Days (7) Timing details: Gradual onset, Still present Associated symptoms: Fever, Chills, Sweats, Nasal congestion, Dry cough, Dyspnea Contributing factors: Sick contact (family sick as well), Unimmunized Improves by: Rest Worsened by: Activity Similar symptoms before: Has not had sx before Recently seen: Surgery (had repair of leg fracture in October.) - Additional information Additional information: 40-year-old female became ill with cough and congestion 1 week ago she was tested for Covid on Thursday with a positive test and a second test on Thursday. She has had persistence of her cough and symptoms the rest of her family is improving in their health and she is in has increased shortness of breath and pain in the left chest. Review of Systems Constitutional: reports: Fever, Chills, Myalgias, Fatigue Eyes: denies: Decreased vision Ears: denies: Ear pain Nose: denies: Rhinorrhea / runny nose, Congestion Throat: denies: Sore throat Cardiac: reports: Chest pain / pressure. denies: Palpitations, Pedal edema, Calf pain Respiratory: reports: Dyspnea, Cough GI: denies: Abdominal Pain, Nausea, Vomiting : denies: Dysuria, Frequency PD PAST MEDICAL HISTORY - Past Medical History Cardiovascular: Arrhythmia Respiratory: None Neuro: Other (Augustin's Palsy) Endocrine/Autoimmune: None, Other (Mast cell disorder) GI: Hiatal hernia, Cholelithiasis : None HEENT: Other Psych: Panic attacks Musculoskeletal: None Derm: None - Past Surgical History Past Surgical History: Yes General: Cholecystectomy - Present Medications Home Medications: Ambulatory Orders Medication Instructions Recorded Confirmed oxyCODONE [Roxicodone] 5 mg PO Q4-6H #30 tablet 11/14/20 01/12/21 Acetaminophen [Tylenol] 650 mg PO Q6H PRN 01/12/21 01/12/21 Azithromycin [Zithromax] 250 mg PO DAILY #6 tablet 01/12/21 - Allergies Allergies/Adverse Reactions: Allergies Allergy/AdvReac Type Severity Reaction Status Date / Time caffeine Allergy Unknown Verified 01/12/21 09:50 Penicillins Allergy Hives Verified 01/12/21 09:50 chocolate flavor AdvReac Anaphylaxis Verified 01/12/21 09:50 metronidazole [From Flagyl] AdvReac Unknown Verified 01/12/21 09:50 promethazine [From Phenergan] AdvReac Unknown Verified 01/12/21 09:50 - Social History Does the pt smoke?: No Smoking Status: Never smoker Does the pt drink ETOH?: Yes Does the pt have substance abuse?: No - Immunizations Immunizations are current?: Yes - POLST Patient has POLST: No PD ED PE NORMAL - Vitals Vital signs reviewed: Yes (normal ) - General General: Alert and oriented X 3, Well developed/nourished, Other (40-year-old female laying on her side moaning with tears in her eyes) - HEENT HEENT: Atraumatic, PERRL, EOMI, Ears normal, Moist mucous membranes, Pharynx benign, Dentition benign - Neck Neck: Supple, no meningeal sign, No bony TTP - Cardiac Cardiac: RRR, No murmur - Respiratory Respiratory: No respiratory distress, Other (crackles at the left base) - Abdomen Abdomen: Soft, Non tender - Back Back: No CVA TTP, No spinal TTP - Derm Derm: Normal color, Warm and dry, No rash - Extremities Extremities: No deformity, No edema - Neuro Neuro: Alert and oriented X 3, heater operator 2-12 intact, No motor deficit, No sensory deficit, Normal speech Eye Opening: Spontaneous Motor: Obeys Commands Verbal: Oriented GCS Score: 15 - Psych Psych: Normal mood, Normal affect Results - Vitals Vitals: Vital Signs - 24 hr 01/12/21 01/12/21 01/12/21 09:42 10:51 11:30 Temperature 36.9 C 36.9 C Heart Rate 100 94 88 Respiratory 20 14 16 Rate Blood Pressure 116/78 132/89 H 125/85 H O2 Saturation 96 97 97 01/12/21 01/12/21 12:23 14:24 Temperature 37 C 37 C Heart Rate 95 86 Respiratory 20 28 H Rate Blood Pressure 135/80 H 140/81 H O2 Saturation 100 100 Oxygen O2 Source Room air - Labs Labs: Laboratory Tests 01/12/21 01/12/21 01/12/21 10:35 10:35 10:35 WBC 5.6 RBC 4.44 Hgb 13.5 Hct 40.2 MCV 90.5 MCH 30.4 MCHC 33.6 RDW 11.9 L Plt Count 260 MPV 10.1 Neut # (Auto) 3.8 Lymph # (Auto) 1.2 L Mcdonough # (Auto) 0.5 Eos # (Auto) 0.1 Baso # (Auto) 0.0 Absolute Nucleated RBC 0.00 Nucleated RBC % 0.0 Sodium 135 Potassium 3.4 L Chloride 99 L Carbon Dioxide 21 Anion Gap 15.0 H BUN 7 Creatinine 0.5 Estimated GFR (MDRD) 136 Glucose 93 Lactic Acid 1.1 Calcium 8.5 Total Bilirubin 1.0 AST 42 ALT 49 Alkaline Phosphatase 65 Total Protein 7.0 Albumin 3.4 Globulin 3.6 Albumin/Globulin Ratio 0.9 L Urine Color Urine Clarity Urine pH Ur Specific [place] Urine Protein Urine Glucose (UA) Urine Ketones Urine Occult Blood Urine Nitrite Urine Bilirubin Urine Urobilinogen Ur Leukocyte Esterase Urine RBC Urine WBC Ur Squamous Epith Cells Urine Bacteria Urine Culture Comments 01/12/21 13:15 WBC RBC Hgb Hct MCV MCH MCHC RDW Plt Count MPV Neut # (Auto) Lymph # (Auto) Mcdonough # (Auto) Eos # (Auto) Baso # (Auto) Absolute Nucleated RBC Nucleated RBC % Sodium Potassium Chloride Carbon Dioxide Anion Gap BUN Creatinine Estimated GFR (MDRD) Glucose Lactic Acid Calcium Total Bilirubin AST ALT Alkaline Phosphatase Total Protein Albumin Globulin Albumin/Globulin Ratio Urine Color YELLOW Urine Clarity CLEAR Urine pH 6.0 Ur Specific [place] 1.025 Urine Protein 30 H Urine Glucose (UA) NEGATIVE Urine Ketones >=80 H Urine Occult Blood NEGATIVE Urine Nitrite NEGATIVE Urine Bilirubin NEGATIVE Urine Urobilinogen 0.2 (NORMAL) Ur Leukocyte Esterase NEGATIVE Urine RBC 0-5 Urine WBC 0-3 Ur Squamous Epith Cells MOD Squamous H Urine Bacteria Few Urine Culture Comments NOT INDICATED - Rads (name of study) chest Radiology: Prelim report reviewed (Impression: Left basilar atelectasis and/or infiltrate.), EMP read indepedently, See rad report PD MEDICAL DECISION MAKING - ED course Complexity details: reviewed results, re-evaluated patient, considered differential, d/w patient ED course: 40-year-old female with COVID-19 has had increase in her symptoms a day 7 she is not hypoxic she does have pneumonia on her x-ray she is administered a monoclonal antibody infusion she is given 10 mg dexamethasone and liter fluid feeling overall improved proved we will place her on a azithromycin as well. Departure - Departure Disposition: 01 Home, Self Care Clinical Impression: COVID-19 Pneumonia Qualifiers: Pneumonia type: due to unspecified organism Laterality: left Lung location: lower lobe of lung Qualified Code(s): J18.9 - Pneumonia, unspecified organism Condition: Stable Instructions: ED Pneumonia Adult, Flu and Cold: Nutrition, Prevention and Treatment Tips Follow-Up: LEXIE KAUR DO [Primary Care Provider] - Prescriptions: Azithromycin [Zithromax] 250 mg PO DAILY #6 tablet
[2021-01-12 10:51] LABS: BASOPHILS % (AUTO) 0.2 %; EOSINOPHILS # (AUTO) 0.1 10^3/uL (0.0-0.7); EOSINOPHILS % (AUTO) 1.4 %; HCT - HEMATOCRIT 40.2 % (37.0-47.0); HGB - HEMOGLOBIN 13.5 g/dL (12.0-16.0); LYMPHOCYTES # (AUTO) 1.2 10^3/uL (1.5-3.5); LYMPHOCYTES % (AUTO) 21.2 %; MEAN CORPUSCULAR HEMOGLOBIN 30.4 pg (27.0-31.0); MEAN CORPUSCULAR HGB CONC 33.6 g/dL (32.0-36.0); MEAN CORPUSCULAR VOLUME 90.5 fL (81.0-99.0); MEAN PLATELET VOLUME 10.1 fL (7.9-10.8); MONOCYTES # (AUTO) 0.5 10^3/uL (0.0-1.0); MONOCYTES % (AUTO) 9.3 %; NEUTROPHILS # (AUTO) 3.8 10^3/uL (1.5-6.6); NEUTROPHILS % (AUTO) 67.5 %; PLT - PLATELET COUNT 260 10^3/uL (130-450); RED BLOOD COUNT 4.44 10^6/uL (4.20-5.40); RED CELL DISTRIBUTION WIDTH 11.9 % (12.0-15.0); WHITE BLOOD COUNT 5.6 x10^3/uL (4.8-10.8)
[2021-01-12 10:56] LABS: ALBUMIN 3.4 g/dL (3.2-5.5); ALBUMIN/GLOBULIN RATIO 0.9 (1.0-2.2); CALCIUM 8.5 mg/dL (8.5-10.3); CREATININE 0.5 mg/dL (0.4-1.0); POTASSIUM 3.4 mmol/L (3.5-5.0)
[2021-01-12] MEDS ORDERED: SODIUM CHLORIDE 0.9% 1,000 ML IV STA (11:12)
[2021-01-12] MEDS ORDERED: ONDANSETRON 4 MG/2 ML VIAL IVP STA (11:12)
--- NOTE | 2021-01-12 12:53 | XRAY Report ---
PROCEDURE: Chest 1 View X-Ray INDICATIONS: URI fever TECHNIQUE: One view of the chest was acquired. COMPARISON: 05/27/2014 FINDINGS: Surgical changes and devices: None. Lungs and pleura: Mild left basilar atelectasis and or infiltrate Mediastinum: Mediastinal contours appear normal. Heart size is normal. Bones and chest wall: No suspicious bony lesions. Overlying soft tissues appear unremarkable. IMPRESSION: Left basilar atelectasis and or infiltrate. Reviewed by: Ricki Burgess MD on 01/12/2021 11:52 AM AKCONCHITA Approved by: Ricki Burgess MD on 01/12/2021 11:52 AM AKDT Station ID: [id number]
[2021-01-12] MEDS ORDERED: CASIRIVIMAB/IMDEVIMAB 10 ML in SODIUM CHLORIDE 0.9% 50 ML IV ONE (13:15)
[2021-01-12 13:29] LABS: GLUCOSE, URINE (UA) NEGATIVE (NEGATIVE); KETONES,URINE (UA) >=80 mg/dL (NEGATIVE); LEUKOCYTE ESTERASE, URINE NEGATIVE (NEGATIVE); NITRITE,URINE NEGATIVE (NEGATIVE); OCCULT BLOOD,URINE NEGATIVE (NEGATIVE); PROTEIN,URINE 30 mg/dL (NEGATIVE); UROBILINOGEN,URINE 0.2 (NORMAL) E.U./dL (NORMAL)
[2021-01-12 13:32] LABS: BILIRUBIN,URINE NEGATIVE (NEGATIVE); CLARITY,URINE CLEAR (CLEAR); ICTOTEST,URINE NEGATIVE
[2021-01-12 13:54] LABS: WBC,URINE 0-3 /HPF (0-5)
[2021-01-12 13:55] LABS: BACTERIA,URINE Few /HPF (None Seen); RBC,URINE 0-5 /HPF (0-5); SQUAMOUS EPITHELIAL CELL,UR MOD Squamous (<= Few)
[2021-01-12] MEDS ORDERED: DEXAMETHASONE 10 MG/ML VIAL PO STA (15:18)
[2021-01-12] MEDS ORDERED: CHERRY SYRUP 10 ML UDC PO ONE (15:18)
[2021-01-12 15:55] VITALS: BP 140/78
== END 2021-01-12 16:08 | disposition home or self-care (01) ==
LOC: ED 09:00
DX: U07.1 COVID-19 (principal); J12.82 Pneumonia due to coronavirus disease 2019
CPT/HCPCS: 36415; 71045; 80053; 81001; 83605; 85025; 87040; 96374; 99284; A9270; J7040; M0243; Q0244; 87086

== ENCOUNTER 2023-03-19 19:24 | Emergency (ER) | payer OTHER ==
[2023-03-19 20:21] LABS: BASOPHILS % (AUTO) 0.4 %; EOSINOPHILS # (AUTO) 0.2 10^3/uL (0.0-0.7); EOSINOPHILS % (AUTO) 1.7 %; HCT - HEMATOCRIT 40.3 % (37.0-47.0); HGB - HEMOGLOBIN 13.1 g/dL (12.0-16.0); LYMPHOCYTES # (AUTO) 2.6 10^3/uL (1.5-3.5); LYMPHOCYTES % (AUTO) 28.6 %; MEAN CORPUSCULAR HEMOGLOBIN 29.8 pg (27.0-31.0); MEAN CORPUSCULAR HGB CONC 32.5 g/dL (32.0-36.0); MEAN CORPUSCULAR VOLUME 91.8 fL (81.0-99.0); MEAN PLATELET VOLUME 10.8 fL (7.9-10.8); MONOCYTES # (AUTO) 0.9 10^3/uL (0.0-1.0); MONOCYTES % (AUTO) 9.7 %; NEUTROPHILS # (AUTO) 5.3 10^3/uL (1.5-6.6); NEUTROPHILS % (AUTO) 59.3 %; PLT - PLATELET COUNT 266 10^3/uL (130-450); RED BLOOD COUNT 4.39 10^6/uL (4.20-5.40); RED CELL DISTRIBUTION WIDTH 12.8 % (12.0-15.0)
[2023-03-19] MEDS ORDERED: ONDANSETRON 4 MG/2 ML VIAL IVP STA (20:35)
[2023-03-19] MEDS ORDERED: HYDROmorphone 1 MG/ML CARPUJECT IVP STA ×2 (20:35→23:28)
[2023-03-19] MEDS ORDERED: SODIUM CHLORIDE 0.9% 1,000 ML IV STA (20:36)
[2023-03-19] MEDS ORDERED: FAMOTIDINE 20 MG/2 ML VIAL IVP STA (20:36)
[2023-03-19 20:37] LABS: ALBUMIN 3.9 g/dL (3.2-5.5); BILIRUBIN,TOTAL 0.3 mg/dL (0.2-1.0); CALCIUM 9.1 mg/dL (8.5-10.3); CREATININE 0.9 mg/dL (0.6-1.3); POTASSIUM 3.8 mmol/L (3.5-4.5); TOTAL PROTEIN 5.9 g/dL (6.4-8.9)
--- NOTE | 2023-03-19 20:47 | ED Physician Documentation ---
History of Present Illness - Stated complaint Stated Complaint: BACK PX - Chief complaint Chief Complaint: Back Pain - History obtained from History obtained from: Patient - Additonal information Additional information: 42yF with pmh hiatal hernia, possible ventral hernia, psh cholecystectomy, p/w R lower back pain coming in waves radiating to RUQ/RLQ since yesterday evening with associated nausea and intermittent dizziness. also with brown vag discharge for a few days. LMP 03/10, lasting about 4 days. denies fever, diarrhea, urinary sx, vomiting. normal BM today Review of Systems Constitutional: denies: Fever Cardiac: denies: Chest pain / pressure Respiratory: denies: Dyspnea GI: reports: Abdominal Pain, Nausea. denies: Vomiting, Diarrhea : denies: Dysuria Musculoskeletal: reports: Back pain PD PAST MEDICAL HISTORY - Past Medical History Cardiovascular: Arrhythmia Respiratory: None Neuro: Other Endocrine/Autoimmune: None, Other GI: Hiatal hernia, Cholelithiasis MANAGER PROVIDER RELATIONS: None : None HEENT: Other Psych: Panic attacks Musculoskeletal: None Derm: None - Past Surgical History Past Surgical History: Yes General: Cholecystectomy - Present Medications Home Medications: Ambulatory Orders Medication Instructions Recorded Confirmed Citalopram Hydrobromide 40 mg PO DAILY 03/19/23 03/19/23 [Citalopram HBr] buPROPion HCL [Bupropion Xl] 150 mg PO DAILY 03/19/23 03/19/23 Ketorolac [Toradol] 10 mg PO Q6H PRN #20 tablet 03/20/23 - Allergies Allergies/Adverse Reactions: Allergies Allergy/AdvReac Type Severity Reaction Status Date / Time caffeine Allergy Unknown Verified 03/19/23 19:39 Penicillins Allergy Hives Verified 03/19/23 19:39 chocolate flavor AdvReac Anaphylaxis Verified 03/19/23 19:39 metronidazole [From Flagyl] AdvReac Unknown Verified 03/19/23 19:39 promethazine [From Phenergan] AdvReac Unknown Verified 03/19/23 19:39 - Social History Does the pt smoke?: No Smoking Status: Never smoker Does the pt drink ETOH?: Yes Does the pt have substance abuse?: No - Immunizations Immunizations are current?: Yes - POLST Patient has POLST: No PD ED PE NORMAL - Vitals Vital signs reviewed: Yes - General General: Alert and oriented X 3, No acute distress, Well developed/nourished - HEENT HEENT: Atraumatic, PERRL, EOMI, Moist mucous membranes, Pharynx benign - Neck Neck: Supple, no meningeal sign - Respiratory Respiratory: No respiratory distress, Clear bilaterally - Abdomen Abdomen: Non tender, Non distended - Derm Derm: Normal color, Warm and dry - Extremities Extremities: No deformity - Psych Psych: Normal mood, Normal affect Results - Vitals Vitals: Vital Signs - 24 hr 03/19/23 03/19/23 03/19/23 19:29 21:40 23:00 Temperature 36.8 C Heart Rate 101 H 95 97 Respiratory 18 16 18 Rate Blood Pressure 142/84 H 123/67 124/65 O2 Saturation 98 98 100 03/20/23 03/20/23 00:09 00:32 Temperature Heart Rate 84 78 Respiratory 15 16 Rate Blood Pressure 127/73 127/67 O2 Saturation 96 98 Oxygen O2 Source Room air - Labs Labs: Laboratory Tests 03/19/23 03/19/23 03/19/23 20:08 20:08 21:20 WBC 9.0 RBC 4.39 Hgb 13.1 Hct 40.3 MCV 91.8 MCH 29.8 MCHC 32.5 RDW 12.8 Plt Count 266 MPV 10.8 Neut # (Auto) 5.3 Lymph # (Auto) 2.6 [place] # (Auto) 0.9 Eos # (Auto) 0.2 Baso # (Auto) 0.0 Absolute Nucleated RBC 0.00 Nucleated RBC % 0.0 Sodium 139 Potassium 3.8 Chloride 107 Carbon Dioxide 25 Anion Gap 7.0 BUN 15 Creatinine 0.9 Estimated GFR (MDRD) 68 L Glucose 116 H Calcium 9.1 Total Bilirubin 0.3 AST 13 ALT 16 Alkaline Phosphatase 70 Total Protein 5.9 L Albumin 3.9 Globulin 2.0 L Albumin/Globulin Ratio 2.0 Lipase 19 Urine Color YELLOW Urine Clarity HAZY Urine pH 6.0 Ur Specific [place] >=1.030 H Urine Protein TRACE Urine Glucose (UA) NEGATIVE Urine Ketones NEGATIVE Urine Occult Blood SMALL H Urine Nitrite NEGATIVE Urine Bilirubin NEGATIVE Urine Urobilinogen 0.2 (NORMAL) Ur Leukocyte Esterase NEGATIVE Urine RBC 0-5 Urine WBC 4-5 Ur Squamous Epith Cells MOD Squamous H Urine Bacteria Moderate H Urine Mucus Moderate Strands Ur Microscopic Review INDICATED Urine Culture Comments NOT INDICATED Urine HCG, Qual 03/19/23 21:20 WBC RBC Hgb Hct MCV MCH MCHC RDW Plt Count MPV Neut # (Auto) Lymph # (Auto) [place] # (Auto) Eos # (Auto) Baso # (Auto) Absolute Nucleated RBC Nucleated RBC % Sodium Potassium Chloride Carbon Dioxide Anion Gap BUN Creatinine Estimated GFR (MDRD) Glucose Calcium Total Bilirubin AST ALT Alkaline Phosphatase Total Protein Albumin Globulin Albumin/Globulin Ratio Lipase Urine Color Urine Clarity Urine pH Ur Specific Cove Urine Protein Urine Glucose (UA) Urine Ketones Urine Occult Blood Urine Nitrite Urine Bilirubin Urine Urobilinogen Ur Leukocyte Esterase Urine RBC Urine WBC Ur Squamous Epith Cells Urine Bacteria Urine Mucus Ur Microscopic Review Urine Culture Comments Urine HCG, Qual NEGATIVE PD Medical Decision Making - ED course ED course: 42yF presented to the ED with right sided abdominal pain and back pain, nonspecific, with discomfort but no guarding on abdominal palpation. DDX includes ovarian cyst, fibroids, appendicitis, IBS or other abdominal pathology. plan to obtain cbc, abdominal panel, ua, hcg, ctap. IVF, zofran, pepcid, dilaudid for pain with improvement. labs and ct unremarkable. advised outpatient f/u with pcp and global sales director. Departure - Departure Disposition: Home, Self Care Clinical Impression: Abdominal pain, Nausea Condition: Stable Instructions: ED Abdominal Pain Female Non-Specific Abdominal Pain Follow-Up: Say Carlson MD [Provider Admit Priv/Credential] - Prescriptions: Ketorolac [Toradol] 10 mg PO Q6H PRN #20 tablet PRN Reason: Pain Comments: You were seen in the emergency department for Back and abdominal pain. Your imaging and labs uncovered no emergent cause for your symptoms. Electronic prescription for pain medicine was sent to [facility] in [place]. Please follow-up with [facility] and your primary care provider and return to the emergency department if you have any new or worsening symptoms or other concerns.
[2023-03-19 21:34] LABS: BILIRUBIN,URINE NEGATIVE (NEGATIVE); GLUCOSE, URINE (UA) NEGATIVE (NEGATIVE); KETONES,URINE (UA) NEGATIVE (NEGATIVE); LEUKOCYTE ESTERASE, URINE NEGATIVE (NEGATIVE); NITRITE,URINE NEGATIVE (NEGATIVE); OCCULT BLOOD,URINE SMALL (NEGATIVE); PROTEIN,URINE TRACE mg/dL (NEGATIVE); UROBILINOGEN,URINE 0.2 (NORMAL) E.U./dL (NORMAL)
[2023-03-19 21:35] LABS: CLARITY,URINE HAZY (CLEAR); HCG UR QUAL NEGATIVE
[2023-03-19 21:42] LABS: BACTERIA,URINE Moderate /HPF (None Seen); MUCUS,URINE Moderate Strands; RBC,URINE 0-5 /HPF (0-5); SQUAMOUS EPITHELIAL CELL,UR MOD Squamous (<= Few)
[2023-03-19] MEDS ORDERED: iohexoL-300 100 ML VIAL IVP ONE (23:51)
[2023-03-20 00:35] VITALS: O2SAT 98
--- NOTE | 2023-03-20 01:27 | CT Report ---
PROCEDURE: ABDOMEN/PELVIS W INDICATIONS: RUQ/RLQ pain, hx hernia, cholecystectomy CONTRAST: 100mL Omni 300 TECHNIQUE: After the administration of intravenous contrast, 5 mm thick sections acquired from the diaphragms to the symphysis. 5 mm thick coronal and sagittal reformats were acquired. For radiation dose reducti on, the following was used: automated exposure control, adjustment of mA and/or kV according to nelli ent size. COMPARISON: None FINDINGS: Visualized lung bases: No pleural effusion. Liver and biliary tree: No suspect focal hepatic lesion. No biliary ductal dilation. Gallbladder: Resected Spleen: Unremarkable. Pancreas: Unremarkable. Adrenal glands: Unremarkable. Kidneys and ureters: No hydronephrosis. Gastrointestinal tract: No bowel obstruction. No evidence of acute appendicitis. Mild predominantly s igmoid colonic diverticulosis without evidence of acute diverticulitis. Peritoneal cavity: No free air or free fluid. Bladder: Unremarkable. Pelvic organs: Unremarkable CT appearance. Vasculature: No abdominal aortic aneurysm. Musculoskeletal: Degenerative change of the spine. IMPRESSION: No acute abnormality identified within the abdomen or pelvis. Reviewed by: Curt Shabazz MD on 03/20/2023 1:26 AM PDT Approved by: Curt Shabazz MD on 03/20/2023 1:26 AM PDT Station ID: [id number]
[2023-03-20] MEDS ORDERED: oxyCODONE/ACET 5/325 Prepack 4 PO STA (01:42)
[2023-03-20 01:50] VITALS: BP 110/67
== END 2023-03-20 01:49 | disposition home or self-care (01) ==
LOC: ED 19:24
DX: R10.11 Right upper quadrant pain (principal); R11.0 Nausea
CPT/HCPCS: 36415; 74177; 80053; 81001; 81025; 83690; 85025; 96374; 96375; 96376; 99283; 99284; J1170; Q9967; 81003; 87086

== ENCOUNTER 2023-08-02 19:36 | Emergency (ER) | payer OTHER ==
[2023-08-02 19:56] VITALS: BP 149/77; O2SAT 100
--- NOTE | 2023-08-02 20:01 | ED Physician Documentation ---
PD HPI LOWER EXT INJURY - Stated complaint Stated Complaint: RT FOOT INJ - Chief complaint Chief Complaint: Trauma Ext - History obtained from History obtained from: Patient - History of Present Illness PD HPI LOW EXT INJURY LOCATION: Right, Ankle, Foot Type of injury: Fall Where injury occurred: Other (sikh) Timing - onset: Other (this morning) Timing - duration: Hours (8) Timing - details: Gradual onset Pain level max: 6 Pain level now: 6 Improved by: Rest, Immobilization Worsened by: Moving, Palpating Associated symptoms: Swelling, Discolored (bruising to the top of the foot). No: Weakness, Numbness, Tingling Contributing factors: Prior ortho surgery (L ankle surgery). No: Anticoagulated Review of Systems : denies: Now EGA PD PAST MEDICAL HISTORY - Past Medical History Cardiovascular: Arrhythmia Respiratory: None Neuro: Other Endocrine/Autoimmune: None, Other GI: Hiatal hernia, Cholelithiasis HASH SLINGER: None : None HEENT: Other Psych: Panic attacks, Other Musculoskeletal: None Derm: None - Past Surgical History Past Surgical History: Yes General: Cholecystectomy - Present Medications Home Medications: Ambulatory Orders Medication Instructions Recorded Confirmed Citalopram Hydrobromide 40 mg PO DAILY 03/19/23 08/02/23 [Citalopram HBr] buPROPion HCL [Bupropion Xl] 150 mg PO DAILY 03/19/23 08/02/23 Oxycodone HCl/Acetaminophen 1 - 2 each PO Q6H PRN #14 tablet 08/02/23 [Percocet 5-325 mg Tablet] MDD 6 tabs - Allergies Allergies/Adverse Reactions: Allergies Allergy/AdvReac Type Severity Reaction Status Date / Time caffeine Allergy Unknown Verified 08/02/23 19:57 Penicillins Allergy Hives Verified 08/02/23 19:57 chocolate flavor AdvReac Anaphylaxis Verified 08/02/23 19:57 metronidazole [From Flagyl] AdvReac Unknown Verified 08/02/23 19:57 promethazine [From Phenergan] AdvReac Unknown Verified 08/02/23 19:57 - Social History Does the pt smoke?: No Smoking Status: Never smoker Does the pt drink ETOH?: Yes Does the pt have substance abuse?: No - Immunizations Immunizations are current?: Yes - POLST Patient has POLST: No PD ED PE NORMAL - Vitals Vital signs reviewed: Yes - General General: Alert and oriented X 3, No acute distress - HEENT HEENT: Moist mucous membranes - Respiratory Respiratory: No respiratory distress, Clear bilaterally - Derm Derm: Warm and dry - Extremities Extremities: Other - Neuro Neuro: Alert and oriented X 3 - Psych Psych: Normal mood, Normal affect - Free text exam Free text exam: R foot/ankle - Tenderness to palpation over the dorsum of the right foot. There is mild swelling and ecchymosis at the site as well. Mild tenderness over the medial malleolus of the ankle. No significant swelling. No gross deformity. Neurovascular intact. Otherwise normal examination of the right foot and ankle Results - Vitals Vitals: Vital Signs - 24 hr 08/02/23 19:44 Temperature 36.9 C Heart Rate 77 Respiratory 16 Rate Blood Pressure 149/77 H O2 Saturation 100 Oxygen O2 Source Room air - Rads (name of study) R foot xray Relevant Findings:: Final report received, See rad report R ankle xray Relevant Findings:: Final report received, See rad report PD Medical Decision Making - ED course Complexity details: reviewed results, re-evaluated patient, considered differential, d/w patient ED course: X-rays of the foot and ankle did not show any acute abnormalities. Patient has a walking boot and crutches at home. Pain well-controlled here. Will place on pain medication for home. Patient appears to have an ankle sprain. Will continue supportive care and have her follow-up with her doctor for further care. Patient counseled regarding signs and symptoms for which I believe and urgent re-evaluation would be necessary. Patient with good understanding of and agreement to plan and is comfortable going home at this time This document was made in part using voice recognition software. While efforts are made to proofread this document, sound alike and grammatical errors may occur. Departure - Departure Disposition: Home, Self Care Clinical Impression: Foot sprain Qualifiers: Encounter type: initial encounter Laterality: right Qualified Code(s): S93.601A - Unspecified sprain of right foot, initial encounter Condition: Good Instructions: ED Sprain Foot Follow-Up: ROLO KAUR DO [Primary Care Provider] - Within 1 week Prescriptions: Oxycodone HCl/Acetaminophen [Percocet 5-325 mg Tablet] 1 - 2 each PO Q6H PRN #14 tablet MDD 6 tabs PRN Reason: pain Comments: Your foot x-ray and ankle x-ray do not show any acute abnormalities today. Please follow-up with your doctor for further care. You may bear weight as tolerated. You can use your walking boot and crutches at home. Your prescriptions were sent to [facility] in [place]. I am prescribing a short course of narcotic pain medication for you. These are potentially dangerous and addictive medications that should be used carefully. These medications may constipate you. Take an aeeu-kns-tutkwoa stool softener (docusate) twice daily with plenty of water while taking these medications. If you go 24 hours without a bowel movement, take [id number] miralax, per package instructions. Do not drink or drive while taking these medications. If you received narcotic or sedating medications while in the emergency department, do not drive for 24 hours. Store this medication in a safe, secure place and out of reach of children. It is a violation of federal law to give or sell this medication to another person or to use in a manner other than prescribed. The ED will not refill narcotic prescriptions, including prescriptions lost or stolen. To dispose of unwanted medications: 1. [facility] at [address] in [place] has a medication drop box. They accept prescription medications (in pill form) Thursday through Thursday 9:00 a.m. to 5:00 p.m. 2. [facility] [employer] accepts prescription medications (in pill form only) for disposal year round. Call for more information. 3. Contact the [facility] for the next [facility] sponsored prescription drug collection event. , [phone], or [phone]; Forms: PCP List
[2023-08-02] MEDS: HYDROcod/ACETAM 5/325 MG TABLET PO STA (20:11)
--- NOTE | 2023-08-02 21:40 | XRAY Report ---
PROCEDURE: Foot 3+V RT INDICATIONS: fall, R foot/ankle pain TECHNIQUE: 3 views of the foot were acquired. COMPARISON: None. FINDINGS: Bones: No fractures or dislocations. Bipartite medial sesamoid of first metatarsal head is seen. Po st-ORIF changes are noted involving lateral malleolus. No suspicious bony lesions. Soft tissues: No tibiotalar joint effusion. Achilles tendon appears normal. IMPRESSION: No acute right foot fracture or dislocation. Reviewed by: Nakul Ledesma MD on 08/02/2023 9:39 PM PST Approved by: Nakul Ledesma MD on 08/02/2023 9:39 PM PST Station ID: [id number]
--- NOTE | 2023-08-02 21:44 | XRAY Report ---
PROCEDURE: Ankle 3+V RT INDICATIONS: fall, R foot/ankle pain TECHNIQUE: 3 views of the ankle were acquired. COMPARISON: 12/27/2020. FINDINGS: Bones: Post-ORIF changes are seen in distal fibular shaft. Subtle linear lucency involving posterior aspect of distal fibular shaft is seen concerning for subtle nondisplaced fracture. This is only see n now lateral view.. No gross hardware loosening or failure. Mild subtalar joint and tibiotalar joint osteoarthritic changes are seen. Ankle mortise is normally aligned. No suspicious bony lesions. Soft tissues: No tibiotalar joint effusion. Achilles tendon appears normal. IMPRESSION: Finding may represent incomplete fracture or nondisplaced fracture involving posterior aspect of dist al tibia. Clinical correlation is recommended. No other fracture or dislocation. Prior ORIF of fibular shaft and lateral malleolus. No gross hardware loosening or failure. Mild hindf oot joint osteoarthritis. Reviewed by: Nakul Light MD on 08/02/2023 9:43 PM PST Approved by: Nakul Light MD on 08/02/2023 9:43 PM PST Station ID: [id number]
[2023-08-02] MEDS: oxyCODONE 5 MG TABLET PO STA (21:55)
== END 2023-08-02 21:55 | disposition home or self-care (01) ==
LOC: ED 19:36
DX: S93.601A Unspecified sprain of right foot, initial encounter (principal); W19.XXXA Unspecified fall, initial encounter; Y92.22 Religious institution as the place of occurrence of the external cause; Z79.899 Other long term (current) drug therapy
CPT/HCPCS: 73610; 73630; 99283; A9270